=== PATIENT | female | born 1975 | race Hispanic/Latino ===

== ENCOUNTER 2022-10-14 18:08 | Emergency (ER) | payer OTHER ==
[2022-10-14] MEDS ORDERED: NA CHLORIDE 0.9% 500 ML ONE (19:52)
[2022-10-14] MEDS ORDERED: NA CHLORIDE 0.9% 1,000 ML ONE (19:52)
[2022-10-14] MEDS ORDERED: ACETAMINOPHEN 500 MG TAB ONE (20:02)
[2022-10-14] MEDS ORDERED: LORazepam 2 MG/ML VIAL ONE (20:02)
[2022-10-14] MEDS ORDERED: MORPHINE 2 MG/ML SYR ONE (20:03)
[2022-10-14 20:34] LABS: Absolute Lymphocytes (CBC) 0.8 K/uL (0.7-4.9); Hematocrit 33.9 % (36.0-45.0); Lymphocytes % 8.8 % (15.3-44.8); MPV 7.5 fL (7.6-11.3); RBC Red Blood Cell Count 3.94 M/uL (3.86-4.86)
[2022-10-14 20:36] LABS: Protime INR 1.1
[2022-10-14 20:48] LABS: Albumin 3.7 g/dL (3.4-5.0); Bilirubin Total 0.3 mg/dL (0.2-1.0); Potassium 3.8 mmol/L (3.5-5.1); Protein, Total 8.3 g/dL (6.4-8.2)
[2022-10-14 20:57] LABS: SARS-COV-2 RT PCR NEGATIVE (NEGATIVE)
--- NOTE | 2022-10-14 21:21 | RAD REPORT ---
EXAM DESCRIPTION: CT - Head C Spine Cap Lulu Torres - 10/14/2022 8:56 pm CLINICAL HISTORY: Trauma, head and neck injury. Chest, abdomen and pelvis pain. MENTAL STATUS CHANGE COMPARISON: No comparisons TECHNIQUE: CT head without contrast. CT cervical spine without contrast with coronal and sagittal reformatted images. CT chest, abdomen and pelvis with IV contrast (approximately 100 mL nonionic IV contrast) with ramires l and sagittal reformatted images of the spine. All CT scans are performed using dose optimization technique as appropriate and may include automated exposure control or mA/KV adjustment according to patient size. FINDINGS: CT HEAD WITHOUT CONTRAST: No intracranial hemorrhage, hydrocephalus or extra-axial fluid collection. No areas of brain edema o r midline shift. The paranasal sinuses and mastoids are clear. The calvarium is intact. CT CERVICAL SPINE WITHOUT CONTRAST: No fracture or subluxation. Mild lower cervical degenerative changes. 4 mm degenerative anterolisthes is of C4 on 5 is present. The prevertebral soft tissues are normal in thickness. CT CHEST, ABDOMEN, PELVIS WITH CONTRAST: The lungs are mildly emphysematous.Nonspecific 3 mm noncalcified nodule superior segment left lower l obe.No pneumothorax or pericardial/pleural fluid. No evidence of intra-abdominal visceral injury, free fluid or free air. Cholecystectomy clips. Vague 10 mm low-density lesion anterior right lobe of the liver. Additional small nonspecific low-den sity lesion right lobe measuring 7 mm. No concerning pelvic findings. No fractures. IMPRESSION: Negative for acute traumatic findings. Vague low-density liver lesions are nonspecific. Followup nonemergent MRI liver protocol may be consi dered. 3 mm noncalcified nodule superior segment left lower lobe, nonspecific.
[2022-10-14 21:54] LABS: Urine Blood Trace-intact (Negative); Urine Glucose Negative (Negative); Urine Protein 2+ (Negative); Urine pH >=9.0 (5.0-7.0)
[2022-10-14] MEDS ORDERED: KETOROLAC 30 MG/ML INJ ONE (22:05)
[2022-10-14 22:15] LABS: Barbiturates NEGATIVE (NEGATIVE); Benzodiazepines NEGATIVE (NEGATIVE); Cocaine NEGATIVE (NEGATIVE); METHAMPHETAM POSITIVE (NEGATIVE); Methadone NEGATIVE (NEGATIVE); Opiates NEGATIVE (NEGATIVE); Phencyclidine NEGATIVE (NEGATIVE); THC Cannibis POSITIVE (NEGATIVE); Urine Bacteria <20 /HPF (<20); Urine Mucus Slight /HPF (None Seen); Urine RBC <5 /HPF (None Seen); Urine WBC Clump Rare /HPF (None Seen)
[2022-10-14] MEDS ORDERED: NA CHLORIDE 0.9% 50 ML ONE (22:38)
[2022-10-14] MEDS ORDERED: CEFTRIAXONE 1000 MG/VIAL ONE (22:38)
--- NOTE | 2022-10-14 23:06 | EDPHYS ---
Physician Documentation [facility] Name: Sally Rosenthal Age: 47 yrs Sex: Female : 1975 Arrival Date: 10/14/2022 Time: 18:13 Bed 7 Private MD: ED Physician Tay Heard HPI: 10/14 19:51 This 47 yrs old Female presents to ER via Wheelchair with complaints of snw Vaginal Bleeding, Fever. 19:51 The patient presents with vaginal bleeding that is heavy, with clots. Onset: The snw symptoms/episode began/occurred acutely. Severity of symptoms: At their worst the symptoms were moderate, severe. pt states she has ovarian ca but has not followed up. The patient has not recently seen a physician. Historical: - Allergies: 19:23 NKDA; as6 - PMHx: 19:23 Hyperthyroidism; as6 - PSHx: 19:23 Cholecystectomy; Appendectomy; hernia; Total abdominal hysterectomy; section; as6 - Immunization history:: Client reports having NOT received the Covid vaccine. - Social history:: Smoking status: Patient reports the use of cigarette tobacco products, smokes one-half pack cigarettes per day. ROS: 19:50 Eyes: Negative for injury, pain, redness, and discharge, ENT: Negative for injury, snw pain, and discharge, Neck: Negative for injury, pain, and swelling, Cardiovascular: Negative for chest pain, palpitations, and edema, Respiratory: Negative for shortness of breath, cough, wheezing, and pleuritic chest pain. 19:50 Back: Negative for injury and pain. 19:50 MS/Extremity: Negative for injury and deformity, Skin: Negative for injury, rash, and discoloration. 19:50 Constitutional: Positive for body aches, fatigue, fever, malaise, poor PO intake. 19:50 Abdomen/GI: Positive for abdominal pain. 19:50 : Positive for vaginal bleeding. 19:50 Neuro: Positive for near syncope, weakness. 19:50 Psych: Positive for anxiety. Exam: 19:48 Head/Face: Normocephalic, atraumatic. Eyes: Pupils equal round and reactive to light, snw extra-ocular motions intact. Lids and lashes normal. Conjunctiva and sclera are non-icteric and not injected. Cornea within normal limits. Periorbital areas with no swelling, redness, or edema. 19:48 Neck: Trachea midline, no thyromegaly or masses palpated, and no cervical lymphadenopathy. Supple, full range of motion without nuchal rigidity, or vertebral point tenderness. No Meningismus. Chest/axilla: Normal chest wall appearance and motion. Nontender with no deformity. No lesions are appreciated. 19:48 Respiratory: Lungs have equal breath sounds bilaterally, clear to auscultation and percussion. No rales, rhonchi or wheezes noted. No increased work of breathing, no retractions or nasal flaring. Back: No spinal tenderness. No costovertebral tenderness. Full range of motion. 19:48 Skin: Warm, dry with normal turgor. Normal color with no rashes, no lesions, and no evidence of cellulitis. MS/ Extremity: Pulses equal, no cyanosis. Neurovascular intact. Full, normal range of motion. Neuro: Awake and alert, GCS 15, oriented to person, place, time, and situation. Cranial nerves II-XII grossly intact. Motor strength 5/5 in all extremities. Sensory grossly intact. Cerebellar exam normal. Normal gait. 19:48 Constitutional: The patient appears awake, anxious, emaciated, frail, in obvious pain. 19:48 ENT: Exam is negative for acute changes, Dental exam: missing teeth, diffusely. 19:48 Cardiovascular: Rate: tachycardic, Rhythm: regular, Heart sounds: normal. 19:48 Abdomen/GI: Inspection: abdomen appears normal, Bowel sounds: active, Palpation: severe abdominal tenderness, in the right lower quadrant. 19:48 Psych: Affect is animated, Oriented to person, place, time, Patient has no thoughts/intents to harm self or others. Vital Signs: 19:18 BP 115 / 79; Pulse 134; Resp 20 S; Temp 102.7(O); Pulse Ox 99% on R/A; Weight 45.36 kg as6 (R); Height 5 ft. 3 in. (160.02 cm) (R); Pain 10/10; 20:35 BP 120 / 71; Pulse 127; Resp 18; Pulse Ox 99% on R/A; kl 21:12 BP 109 / 67; Pulse 125; Resp 18; Temp 101.2(O); Pulse Ox 100% on R/A; kl 21:35 Temp 99.1(O); ll3 22:45 BP 101 / 49; Pulse 102; Resp 16; Pulse Ox 99% on R/A; jb4 19:18 Body Mass Index 17.71 (45.36 kg, 160.02 cm) as6 MDM: 19:47 Patient medically screened. snw 23:09 Differential diagnosis: nonspecific abdominal pain, urinary tract infection, vaginosis, snw drug abuse, malnutrition. Data reviewed: vital signs, nurses notes, lab test result(s), radiologic studies. Historians other than the Patient: Spouse/Significant Other: Significant other. Care significantly affected by the following chronic conditions: Hyperthyroidism, not taking her meds. Counseling: I had a detailed discussion with the patient and/or guardian regarding: the historical points, exam findings, and any diagnostic results supporting the discharge/admit diagnosis, lab results, radiology results, the need for outpatient follow up, to return to the emergency department if symptoms worsen or persist or if there are any questions or concerns that arise at home. Response to treatment: the patient's symptoms have markedly improved after treatment. Special discussion: Based on the history and exam findings, there is no indication for further emergent testing or inpatient evaluation. I discussed with the patient/guardian the need to see the OB Gyne specialist for further evaluation of the symptoms. I discussed with the patient/guardian the need to see the primary care provider for further evaluation of the symptoms. 10/14 19:23 Order name: Urine Culture [facility] 10/14 19:23 Order name: Urine Microscopic Only [facility] 10/14 19:27 Order name: Blood Culture Adult (2) 10/14 19:27 Order name: CBC with Diff 10/14 19:27 Order name: CMP [facility] 10/14 19:27 Order name: Lactate w/ 2H reflex if indic. 10/14 19:27 Order name: Protime (+inr) 10/14 19:27 Order name: Ptt, Activated [facility] 10/14 19:27 Order name: COVID-19/FLU A+B [facility] 10/14 19:52 Order name: UDS [facility] 10/14 20:36 Order name: CBC with Automated Diff; Complete Time: 20:41 EDMS 10/14 20:36 Order name: PTT, Activated Partial Thromb; Complete Time: 20:41 EDMS 10/14 20:36 Order name: Protime (+INR); Complete Time: 20:41 EDMS 10/14 19:27 Order name: EKG; Complete Time: 19:28 snw 10/14 19:50 Order name: CT Traumagram (Head C Spine CAP W Con) snw 10/14 20:49 Order name: Comprehensive Metabolic Panel; Complete Time: 20:49 EDMS 10/14 20:57 Order name: COVID-19/FLU A+B; Complete Time: 20:57 EDMS 10/14 21:00 Order name: Lactate w/ 2H reflex if indic.; Complete Time: 21:01 EDMS 10/14 21:22 Order name: CT; Complete Time: 21:27 EDMS 10/14 21:54 Order name: Urine Dipstick-Ancillary; Complete Time: 22:01 EDMS 10/14 22:16 Order name: Urine Drug Screen; Complete Time: 22:16 EDMS 10/14 22:16 Order name: Urine Microscopic Only; Complete Time: 22:17 EDMS 10/14 23:25 Order name: CREATININE WHOLE BLOOD; Complete Time: 23:33 EDMS 10/14 19:23 Order name: Urine Dipstick-Ancillary (obtain specimen); Complete Time: 22:29 snw 10/14 19:23 Order name: Urine Test (obtain specimen); Complete Time: 22:29 snw 10/14 19:27 Order name: Accucheck; Complete Time: 22:29 snw 10/14 19:27 Order name: Cardiac monitoring; Complete Time: 20:32 snw 10/14 19:27 Order name: EKG - Nurse/Tech; Complete Time: 20:32 snw 10/14 19:27 Order name: IV Saline Lock - Large Bore; Complete Time: 20:32 snw 10/14 19:27 Order name: Labs collected and sent; Complete Time: 20:32 snw 10/14 19:27 Order name: O2 Per Protocol; Complete Time: 20:45 snw 10/14 19:27 Order name: O2 Sat Monitoring; Complete Time: 20:32 snw 10/14 19:27 Order name: Vital Signs; Complete Time: 20:32 snw 10/14 20:49 Order name: Recheck VS; Complete Time: 21:17 snw EC:30 Rate is 129 beats/min. Rhythm is regular. QRS is positive in leads III, aVF, aVR. T snw waves are Inverted in leads V2, V3. Clinical impression: Sinus tachycardia. Administered Medications: 20:11 Drug: NS 0.9% (30 ml/kg) 30 ml/kg Route: IV; Rate: bolus; Site: left antecubital; jb4 20:11 Drug: Tylenol 1000 mg Route: PO; jb4 20:11 Drug: morphine 2 mg Route: IVP; Infused Over: 4 mins; Site: left antecubital; jb4 20:11 Drug: Ativan (LORazepam) 1 mg Route: IVP; Site: left antecubital; jb4 22:13 Drug: Ketorolac 15 mg Route: IVP; Site: left antecubital; jb4 22:42 Drug: Rocephin (cefTRIAXone) 1 grams {Note: administered in 50ml of NS per provider.} jb4 Route: IV; Rate: calculated rate; Site: left antecubital; Disposition: 10/15 03:10 Co-signature as Attending Physician, Tay Heard MD I reviewed the patient's care rt provided by the Advanced Practice Provider and agree with the diagnosis and treatment plan. Disposition Summary: 10/14/22 23:06 Discharge Ordered Location: Home snw Condition: Stable snw Diagnosis - Moderate protein-calorie malnutrition snw - Restlessness and agitation snw Followup: snw - With: Emergency Department - When: As needed - Reason: Worsening of condition Followup: snw - With: Private Physician - When: 2 - 3 days - Reason: Recheck today's complaints, Continuance of care, Re-evaluation by your physician Discharge Instructions: - Discharge Summary Sheet snw - Hyperthyroidism snw - Protein-Energy Malnutrition snw - Pulmonary Nodule snw - Illegal Drug Use Information, Adult snw Forms: - Medication Reconciliation Form snw - Thank You Letter snw - Antibiotic Education snw - Prescription Opioid Use snw Prescriptions: - Tylenol 325 mg Oral Tablet - take 2 tablets by ORAL route every 8 hours as needed; 30 tablet; Refills: 0, snw Product Selection Permitted Signatures: Dispatcher [employer] Aliyah Mesa FNP-C SUBSCRIPTION AGENT-Csnw Maulik Stevens RN RN jb4 Keyon Jeffers RN RN as6 Tay Heard MD MD rt Corrections: (The following items were deleted from the chart) 10/14 22:29 21:01 Gideon jason jb4
--- NOTE | 2022-10-14 23:06 | ER ---
Nurse's Notes [facility] Name: Sally Rosenthal Age: 47 yrs Sex: Female : 1975 Arrival Date: 10/14/2022 Time: 18:13 Bed 7 Private MD: Diagnosis: Moderate protein-calorie malnutrition;Restlessness and agitation Presentation: 10/14 19:18 Chief complaint: Spouse and/or significant other states: "She has ovarian cancer, she as6 was dx 9 months ago and never followed up". Coronavirus screen: At this time, the client does not indicate any symptoms associated with coronavirus-19. Ebola Screen: No symptoms or risks identified at this time. Initial Sepsis Screen: Does the patient meet any 2 criteria? Temp <36.0*C (96.8*F)) or > 38.3*C (100.9*F). HR > 90 bpm. Yes Does the patient have a suspected source of infection? No. Patient's initial sepsis screen is negative. Risk Assessment: Do you want to hurt yourself or someone else? Patient reports no desire to harm self or others. Onset of symptoms was October 07, 2022. 19:18 Method Of Arrival: Wheelchair as6 19:18 Acuity: KENNEDY 2 as6 Triage Assessment: 19:40 General: Appears distressed, uncomfortable, slender, Behavior is anxious, crying. Pain: kl Complains of pain in right lower quadrant and left lower quadrant Pain currently is 10 out of 10 on a pain scale. Quality of pain is described as sharp, stabbing. EENT: Poor dentition noted. Neuro: No deficits noted. Cardiovascular: Rhythm is sinus tachycardia. Respiratory: No deficits noted. GI: Abdomen is flat, Abdomen is tender to palpation X 4 quads. Reports constipation. : Reports vaginal bleeding that is with clots, heavy flow. Derm: No deficits noted. Musculoskeletal: No deficits noted. Historical: - Allergies: 19:23 NKDA; as6 - PMHx: 19:23 Hyperthyroidism; as6 - PSHx: 19:23 Cholecystectomy; Appendectomy; hernia; Total abdominal hysterectomy; section; as6 - Immunization history:: Client reports having NOT received the Covid vaccine. - Social history:: Smoking status: Patient reports the use of cigarette tobacco products, smokes one-half pack cigarettes per day. Screenin:34 [facility] ED Fall Risk Assessment (Adult) History of falling in the last 3 months, kl including since admission No falls in past 3 months (0 pts) Confusion or Disorientation No (0 pts) Intoxicated or Sedated Impaired Gait No (0 pts) Mobility Assist Device Used No (0 pt) Altered Elimination No (0 pt). Abuse screen: Denies threats or abuse. Nutritional screening: No deficits noted. Tuberculosis screening: No symptoms or risk factors identified. Assessment: 20:33 General: see triage assessment. kl 21:14 Reassessment: Patient and/or family updated on plan of care and expected duration. Pain kl level reassessed. Patient is alert, oriented x 3, equal unlabored respirations, skin warm/dry/pink. Patient states feeling better. Patient states symptoms have improved. 22:00 Reassessment: Patient appears in no apparent distress at this time. Patient and/or jb4 family updated on plan of care and expected duration. Pain level reassessed. Patient is alert, oriented x 3, equal unlabored respirations, skin warm/dry/pink. 23:38 Reassessment: Patient appears in no apparent distress at this time. Patient and/or jb4 family updated on plan of care and expected duration. Pain level reassessed. Patient is alert, oriented x 3, equal unlabored respirations, skin warm/dry/pink. Vital Signs: 19:18 BP 115 / 79; Pulse 134; Resp 20 S; Temp 102.7(O); Pulse Ox 99% on R/A; Weight 45.36 kg as6 (R); Height 5 ft. 3 in. (160.02 cm) (R); Pain 10/10; 20:35 BP 120 / 71; Pulse 127; Resp 18; Pulse Ox 99% on R/A; kl 21:12 BP 109 / 67; Pulse 125; Resp 18; Temp 101.2(O); Pulse Ox 100% on R/A; kl 21:35 Temp 99.1(O); ll3 22:45 BP 101 / 49; Pulse 102; Resp 16; Pulse Ox 99% on R/A; jb4 19:18 Body Mass Index 17.71 (45.36 kg, 160.02 cm) as6 ED Course: 18:13 Patient arrived in ED. mr 19:21 [facility] Spencer [facility]C [facility]. snw 19:21 Tay Heard MD is Attending Physician. snw 19:23 Triage completed. as6 19:24 Arm band placed on. as6 19:53 Saji Slade, LANG is Primary Nurse. bp 20:00 Inserted saline lock: 22 gauge in left forearm, using aseptic technique. ,using aseptic kl technique. 22 diffusic Blood collected. Missed attempt(s): 20 gauge in right forearm. 20:44 COVID-19/FLU A+B Sent. kl 20:44 Blood Culture Adult (2) Sent. kl 20:44 CBC with Diff Sent. kl 20:44 CMP Sent. kl 20:45 Lactate w/ 2H reflex if indic. Sent. kl 20:45 Protime (+inr) Sent. kl 20:45 Ptt, Activated Sent. kl 23:39 No provider procedures requiring assistance completed. IV discontinued, intact, jb4 bleeding controlled, No redness/swelling at site. Pressure dressing applied. Administered Medications: 20:11 Drug: NS 0.9% (30 ml/kg) 30 ml/kg Route: IV; Rate: bolus; Site: left antecubital; jb4 20:11 Drug: Tylenol 1000 mg Route: PO; jb4 20:11 Drug: morphine 2 mg Route: IVP; Infused Over: 4 mins; Site: left antecubital; jb4 20:11 Drug: Ativan (LORazepam) 1 mg Route: IVP; Site: left antecubital; jb4 22:13 Drug: Ketorolac 15 mg Route: IVP; Site: left antecubital; jb4 22:42 Drug: Rocephin (cefTRIAXone) 1 grams {Note: administered in 50ml of NS per provider.} jb4 Route: IV; Rate: calculated rate; Site: left antecubital; Outcome: 23:06 Discharge ordered by . snw 23:39 Discharged to home via wheelchair, with family. jb4 23:39 Condition: stable 23:39 Discharge instructions given to patient, Instructed on discharge instructions, follow up and referral plans. medication usage, Demonstrated understanding of instructions, follow-up care, medications, Prescriptions given X 1. 23:39 Patient left the ED. jb4 Signatures: Debbie Uriarte RN RN kl Waters, Shelly, FNP-C FNP-Farnaz Elizabeth mr RodneyMaulik, RN RN jb4 Saji Slade RN RN bp Keyon Jeffers, LANG RN as6 Afua Rivers RN RN ll3 Corrections: (The following items were deleted from the chart) 22:13 22:13 Ketorolac 15 mg IVP in left forearm jb4 jb4
[2022-10-15 00:24] VITALS: TEMP 99.1
[2022-10-15 00:25] VITALS: BP 101/49; O2SAT 99
--- NOTE | 2022-10-15 16:18 | EKG ---
Test Date: 2022-10-14 Test Time: 20:29:03 Security Attendant: DAVID MEASUREMENT RESULTS: Intervals: Rate: 129 DE: 120 QRSD: 70 QT: 284 QTc: 416 [place]: P: 76 DE: 120 QRS: 262 T: 74 INTERPRETIVE STATEMENTS: Sinus tachycardia Right superior axis deviation Pulmonary disease pattern Right ventricular hypertrophy with repolarization abnormality Nonspecific T wave abnormality Abnormal ECG No previous ECG available for comparison Electronically Signed On 10-15-22 16:17:15 MANAGING EDITOR by David Abreu
== END 2022-10-14 23:39 | disposition home or self-care (01) ==
LOC: ER 18:08
DX: E44.0 Moderate protein-calorie malnutrition (principal); R45.1 Restlessness and agitation; N93.9 Abnormal uterine and vaginal bleeding, unspecified; F17.210 Nicotine dependence, cigarettes, uncomplicated; Z20.822 Contact with and (suspected) exposure to COVID-19; Z85.43 Personal history of malignant neoplasm of ovary
CPT/HCPCS: 93005; 87040 ×2; 87088; 85025; 87086; 36415; 85610; 82565; 83605; 85730; 80053; 0240U; 80307; 70450; 72125; 71260; 74177; 96375; 96374; 99284; Q9967; J2270; J7040; J7030; 81003; 81015; 86850